=== PATIENT | female | born 1965 | race American Indian/Alaskan Native ===

== ENCOUNTER 2017-10-13 08:21 | Day surgery (SDC) | payer OTHER ==
[2017-10-13] MEDS ORDERED: ECOTRIN PO ONE (08:40)
[2017-10-13] MEDS ORDERED: PLAVIX PO ONE (08:40)
[2017-10-13] MEDS ORDERED: PLAVIX ONE (08:49)
[2017-10-13 08:55] LABS: Basophils # (Auto) 0.1 K/mm3 (0.0-0.1); Basophils % (Auto) 0.8 % (0.0-1.8); Eosinophils # (Auto) 0.2 K/mm3 (0.0-0.4); Eosinophils % (Auto) 2.3 % (0.0-4.3); Hematocrit 34.3 % (30.3-42.9); Hemoglobin 10.8 gm/dl (10.1-14.3); Lymphocytes # (Auto) 2.2 K/mm3 (1.2-5.4); Mean Corpuscular HGB Conc 31 % (30-34); Mean Corpuscular Volume 73 fl (79-97); Monocytes # (Auto) 0.9 K/mm3 (0.0-0.8); Monocytes % (Auto) 9.8 % (0.0-7.3); Platelet Count 356 K/mm3 (140-440); Red Blood Count 4.67 M/mm3 (3.65-5.03); Red Cell Distribution Width 18.5 % (13.2-15.2)
[2017-10-13 08:56] LABS: Mean Corpuscular Hemoglobin 23 pg (28-32)
[2017-10-13] MEDS ORDERED: NACL 0.9% 500 ML 500 ML IV SCH (09:00)
[2017-10-13 09:06] LABS: INR 0.93 (0.87-1.13)
[2017-10-13 09:08] LABS: BUN/Creatinine Ratio 23; Blood Urea Nitrogen 18 mg/dL (7-17); Hemolysis Index 185
[2017-10-13] MEDS ORDERED: HEPARIN/NS 5000 UNIT/500ML(CATH LAB) 1,000 ML IR ONE (10:26)
[2017-10-13] MEDS ORDERED: NITROGLYCERIN SYRINGE 0 ML ONE (10:27)
[2017-10-13] MEDS ORDERED: VERSED ONE (10:27)
[2017-10-13] MEDS ORDERED: CALAN ONE (10:27)
[2017-10-13] MEDS ORDERED: HEPARIN 10,000 UNITS/10 ML ONE (10:27)
[2017-10-13] MEDS ORDERED: XYLOCAINE 2% INFILTRATI ONE (10:27)
[2017-10-13] MEDS ORDERED: SUBLIMAZE ONE (10:28)
--- NOTE | 2017-10-13 11:58 | Cardiac Catherization Report ---
CARDIAC CATHETERIZATION CLINICAL INFORMATION: A 52-year-old -[place] female with history of palpitations and history of ischemic stroke in 02/2015 evaluated at [facility] was having chest pains. A stress myocardial perfusion imaging was ordered; during this stress test, the patient developed throat pain and EKG changes suggestive of ischemia. However, perfusion imaging was normal. The patient developed significant systolic and diastolic hypertension reaching 229/107, resting blood pressure being 124/73. Because of the symptomatology and EKG changes in spite of questionable finding of large septal/inferior defect in the rest images, the patient is scheduled for cardiac catheterization for definitive diagnosis and treatment. The patient is aware of the procedure, potential complications, and alternatives of therapy available. DESCRIPTION OF PROCEDURE: The patient was brought to the catheterization laboratory in a fasting condition. The patient was evaluated for appropriateness for moderate sedation. When it was felt appropriate, the patient was sedated with IV Versed and fentanyl. Subsequently, right wrist area and forearm thoroughly cleansed with Betadine solution. Sterile drapes were applied. Local anesthesia was achieved using 2% Xylocaine. Right radial artery puncture was made using 21-gauge arterial puncture needle. Subsequently, 5-Stateless slender sheath was introduced. A 5-Stateless multipurpose catheter was initially attempted; however, because of the distal attachment of the subclavian to the arch, required JR4 catheter to enter the ascending aorta. Using the 5-Stateless JR4 catheter, left ventriculogram was performed using hand injection. Subsequently, JR4 catheter was used to obtain the angiograms of the right coronary artery. Subsequently, this catheter was exchanged with 5-Stateless TIG catheter and angiograms of the left coronary artery were obtained in multiple views. At the end of the procedure, catheter and sheath were removed. The patient tolerated the procedure well. No untoward complications were noted. The patient was monitored for any side effects from moderate sedation with EKG monitoring, pulse oximetry, and hemodynamic monitoring. The patient tolerated well. The patient's moderate sedation started at 10:53 a.m. and ended at 11:09 a.m. At the end of the procedure, the patient is alert, awake, oriented x 3, moving all the extremities. Following findings were noted. HEMODYNAMICS: 1. Opening aortic pressure 143/74, left ventricular pressure 138/25, no gradient across the aortic valve. Estimated ejection fraction 55%. 2. Left ventriculogram done in ALFONSO projection shows normal sized left ventricle with normal contractility. Mitral regurgitation could not be evaluated because of limited amount of dye injected. 3. Right coronary artery nondominant vessel arises normally from right coronary cusp and angiographically smooth and normal. 4. Left coronary artery arises normally from left coronary cusp. Left main, LAD, which curves around the apex and circumflex artery, which is a dominant vessel and its branch are angiographically smooth and normal. FINAL IMPRESSION: 1. Normal sized left ventricle with normal contractility and elevated end diastolic pressure of 25 mmHg. 2. Normal coronary anatomy with left coronary system being dominant. Angiographically smooth and normal. 3. Right radial artery was used for access. No untoward complications were noted. The patient was transferred to the room in stable condition. No untoward complications noted. The patient will be continued on aggressive risk factor modification and medical therapy. The patient understands. JOB# [id number] ARIK/NTS
[2017-10-13 14:31] VITALS: BP 122/67
--- NOTE | 2017-10-15 15:41 | Short Stay Summary ---
Short Stay Documentation Date of service: 10/13/17 - History H&P: obtained from office - Allergies and Medications Current Medications: Allergies No Known Allergies Allergy (Verified 10/13/17 08:39) Home Medications Medication Instructions Recorded Confirmed Last Taken Type Amlodipine/Valsartan/Hcthiazid 1 tab PO DAILY 10/13/17 10/13/17 10/13/17 History [Exforge Hct 10-160-25 mg Tab] 1 Aspirin EC 81 mg PO DAILY 10/13/17 10/13/17 10/12/17 History 81mg Atorvastatin [Lipitor] 80 mg PO QHS 10/13/17 10/13/17 10/12/17 History 80mg Clopidogrel Bisulfate [Clopidogrel] 75 mg PO DAILY 10/13/17 10/13/17 10/13/17 History 75mg Insulin Glargine/Lixisenatide 35 units SC DAILY 10/13/17 10/13/17 10/12/17 History [Soliqua 100 Unit-33 Mcg/ml Pen] 35units Nebivolol HCl [Bystolic] 20 mg PO QHS 10/13/17 10/13/17 10/12/17 22:00 History 20mg metFORMIN [Glucophage] 500 mg PO QHS 10/13/17 10/13/17 10/12/17 22:00 History 500mg - Brief post op/procedure progress note Date of procedure: 10/13/17 Pre-op diagnosis: chest pain Post-op diagnosis: same Procedure: [facility] - see dictated cath report Anesthesia: local Estimated blood loss: none Condition: stable - Disposition Condition at discharge: Good Disposition: [id number] TO HOME OR SELFCARE - Discharge Diagnoses (1) Chest pain Status: Acute (2) Normal coronary arteries Status: Chronic (3) History of CVA (cerebrovascular accident) Status: Chronic Short Stay Discharge Plan Activity: advance as tolerated Diet: regular Wound: open to air, keep clean and dry, per your surgeon's advice Follow up with: JASON PRETTY MD [Primary Care Provider] - 7 Days Forms: CardCath PCI D/C Instructions, Work/School Excuse Out Patient
== END 2017-10-13 15:30 | disposition home or self-care (01) ==
LOC: CATHLABREC 08:21
PROVIDERS: ATTEND Internal Medicine
DX: R07.9 Chest pain, unspecified (principal); E78.00 Pure hypercholesterolemia, unspecified; I10 Essential (primary) hypertension; Z79.899 Other long term (current) drug therapy; Z79.84 Long term (current) use of oral hypoglycemic drugs; Z79.82 Long term (current) use of aspirin; Z86.73 Personal history of transient ischemic attack (TIA), and cerebral infarction without residual deficits; Z98.890 Other specified postprocedural states
CPT/HCPCS: 36415; 80048; 82962; 85025; 85610; 85730; 93005; 93010; 93458; 99156; 99157; C1769; C1887; C1894; J1644; J2250; J3010; J7040; Q9967